=== PATIENT | female | born 1965 | race Caucasian/White ===

== ENCOUNTER 2019-06-19 09:10 | Outpatient (CLI) | payer BC ==
--- NOTE | 2019-06-19 16:19 | XRAY Report ---
Reason: PAIN IN RIGHT FOOT Procedure Date: 06/19/2019 Accession Number: [id number] Procedure: XRS - Foot 3 View RT CPT Code: Final Report FULL RESULT: EXAM: RIGHT FOOT RADIOGRAPHY EXAM DATE: 06/19/2019 09:22 AM. CLINICAL HISTORY: PAIN IN RIGHT FOOT. COMPARISON: 03/17/2015 4:29 PM. TECHNIQUE: 3 views. FINDINGS: Bones: A small osseous plantar spur noted. No fractures or bone lesions. Joints: Normal. No subluxations. Soft Tissues: Normal. No soft tissue swelling. IMPRESSION: A small osseous plantar spur. No acute displaced fracture or malalignment. RADIA
== END 2019-06-19 09:11 | disposition home or self-care (01) ==
LOC: DI.S 09:10
PROVIDERS: ATTEND Nurse Practitioner Family
DX: M77.51 Other enthesopathy of right foot and ankle (principal)

== ENCOUNTER 2021-11-27 09:21 | Outpatient (CLI) | payer BC ==
[2021-11-27 15:31] LABS: BASOPHILS % (AUTO) 0.4 %; EOSINOPHILS # (AUTO) 0.1 10^3/uL (0.0-0.7); HCT - HEMATOCRIT 42.5 % (37.0-47.0); HGB - HEMOGLOBIN 13.5 g/dL (12.0-16.0); LYMPHOCYTES # (AUTO) 1.6 10^3/uL (1.5-3.5); LYMPHOCYTES % (AUTO) 32.1 %; MEAN CORPUSCULAR HEMOGLOBIN 28.8 pg (27.0-31.0); MEAN CORPUSCULAR HGB CONC 31.8 g/dL (32.0-36.0); MEAN CORPUSCULAR VOLUME 90.8 fL (81.0-99.0); MEAN PLATELET VOLUME 13.8 fL (7.9-10.8); MONOCYTES # (AUTO) 0.3 10^3/uL (0.0-1.0); MONOCYTES % (AUTO) 5.7 %; NEUTROPHILS % (AUTO) 60.6 %; PLT - PLATELET COUNT 146 10^3/uL (130-450); RED BLOOD COUNT 4.68 10^6/uL (4.20-5.40); RED CELL DISTRIBUTION WIDTH 13.3 % (12.0-15.0); WHITE BLOOD COUNT 4.9 x10^3/uL (4.8-10.8)
[2021-11-27 15:51] LABS: ALBUMIN 4.1 g/dL (3.2-5.5); ALBUMIN/GLOBULIN RATIO 1.4 (1.0-2.2); ALKALINE PHOSPHATASE 54 IU/L (42-121); ALT ALANINE AMINOTRANSFERASE 21 IU/L (10-60); AST ASPARTATE AMINOTRANSFERASE 14 IU/L (10-42); BILIRUBIN,TOTAL 0.5 mg/dL (0.2-1.0); BUN - BLOOD UREA NITROGEN 16 mg/dL (6-20); CALCIUM 9.5 mg/dL (8.5-10.3); CARBON DIOXIDE - CO2 28 mmol/L (21-32); CHLORIDE 104 mmol/L (101-111); CHOLESTEROL 183 mg/dL; CREATININE 0.6 mg/dL (0.4-1.0); GFR - MDRD 103 (>89); GLUCOSE 98 mg/dL (70-100); HDL CHOLESTEROL 61 mg/dL; LDL CHOLESTEROL,CALCULATED 105 mg/dL; LDL/HDL RATIO 1.7 (<4.4); POTASSIUM 3.9 mmol/L (3.5-5.0); SODIUM 141 mmol/L (135-145); TOTAL PROTEIN 7.1 g/dL (6.7-8.2); TRIGLYCERIDES 86 mg/dL; VLDL CHOLESTEROL 17 mg/dL
[2021-11-27 15:55] LABS: CRP - C-REACTIVE PROTEIN < 1.0 mg/dL (0-1.0)
[2021-11-27 16:21] LABS: ESTIMATED AVERAGE GLUCOSE 108 mg/dL (70-100); HEMOGLOBIN A1c% 5.4 % (4.27-6.07)
== END 2021-11-27 09:22 | disposition home or self-care (01) ==
LOC: LAB.S 09:21
PROVIDERS: ATTEND Registered Nurse
DX: Z00.00 Encounter for general adult medical examination without abnormal findings (principal); E55.9 Vitamin D deficiency, unspecified; Z13.6 Encounter for screening for cardiovascular disorders; Z13.1 Encounter for screening for diabetes mellitus; E66.9 Obesity, unspecified; F32.A Depression, unspecified
CPT/HCPCS: 36415; 80053; 80061; 82306; 83036; 83721; 84443; 85025; 86140

== ENCOUNTER 2022-03-30 15:48 | Outpatient (CLI) | payer BC ==
--- NOTE | 2022-03-30 17:39 | XRAY Report ---
PROCEDURE: Knee 3 View BILAT INDICATIONS: OSTEOARTHRITIS TECHNIQUE: 3 views of the bilateral knee(s) were acquired. COMPARISON: None. FINDINGS: Bones: No fractures or dislocations. No suspicious bony lesions. Moderate medial and mild lateral compartmental joint space narrowing noted bilaterally. Small marginal osteophytes present. Small bila teral joint effusions noted. Both patellofemoral joint spaces are relatively preserved. Soft tissues: No radiopaque foreign body IMPRESSION: Moderate osteoarthritis with mild marginal osteophytes Small bilateral joint effusions Reviewed by: Tj Owens MD on 03/30/2022 4:37 PM AKIGOR Approved by: Tj Owens MD on 03/30/2022 4:37 PM AKDT Station ID: [id number]
--- NOTE | 2022-03-30 18:03 | XRAY Report ---
PROCEDURE: Foot 3 View RT INDICATIONS: OSTEOARTHRITIS TECHNIQUE: 3 views of the foot were acquired. COMPARISON: X-ray right foot, . FINDINGS: Bones: No fractures or dislocations. No suspicious bony lesions. Mild degenerative joint disease of the intertarsal joints, the second, third, fourth and fifth tarsometatarsal joints and multiple inte rphalangeal joints. Prominent calcaneus plantar spurring. Bipartite sesamoids. Soft tissues: No tibiotalar joint effusion. Achilles tendon appears normal. IMPRESSION: 1. Mild osteoarthritis. 2. Calcaneal spurring. Reviewed by: Stefani Hearn MD on 03/30/2022 6:02 PM PDT Approved by: Stefani Hearn MD on 03/30/2022 6:02 PM PDT Station ID: [id number]
== END 2022-03-30 15:49 | disposition home or self-care (01) ==
LOC: DI.S 15:48
PROVIDERS: ATTEND Registered Nurse
DX: M17.0 Bilateral primary osteoarthritis of knee (principal); M19.071 Primary osteoarthritis, right ankle and foot; M77.31 Calcaneal spur, right foot; M25.462 Effusion, left knee; M25.461 Effusion, right knee

== ENCOUNTER 2023-01-01 08:00 | Outpatient (CLI) | payer BC ==
--- NOTE | 2023-01-01 15:03 | XRAY Report ---
PROCEDURE: Knee 4 View BILAT INDICATIONS: BILAT KNEE PAIN TECHNIQUE: 4 views of each knee(s) were acquired. COMPARISON: None. FINDINGS: Bones: No fractures or dislocations. No suspicious bony lesions. Moderate tricompartmental osteoart hritic changes. There is joint space narrowing in the medial femorotibial compartment bilaterally, mo derate--12 and severe on the right and mild on the left. Soft tissues: Small knee joint effusion. No suspicious soft tissue calcifications or masses. IMPRESSION: 1. Tricompartmental osteoarthritis as described, right greater than left. 2. Small knee joint effusions. Reviewed by: Stefani Hearn MD on 01/01/2023 3:01 PM PDT Approved by: Stefani Hearn MD on 01/01/2023 3:01 PM PDT Station ID: [id number]
== END 2023-01-01 23:59 | disposition home or self-care (01) ==
LOC: DI.WOS 08:00
PROVIDERS: ATTEND Physician Assistant Surgical
DX: M17.0 Bilateral primary osteoarthritis of knee (principal); M25.462 Effusion, left knee; M25.461 Effusion, right knee

== ENCOUNTER 2024-01-23 13:45 | Outpatient (CLI) | payer BC ==
--- NOTE | 2024-01-23 15:31 | XRAY Report ---
PROCEDURE: Lumbar Spine 4V INDICATIONS: BACK PAIN TECHNIQUE: 3 views of the lumbar spine were acquired. COMPARISON: None. FINDINGS: Surgical change: None. Bones: 5 [id number] vertebrae are present. Rightward curvature of the spine, centered at L2-3. No vertebral body compression fractures. No suspicious bony lesions. Moderate disc height loss at L5 -S1. Mild disc height loss at remaining levels. Mild facet arthrosis of L5-S1. Soft tissues: Overlying bowel gas pattern is normal. No suspicious soft tissue calcifications. IMPRESSION: Mild to moderate, multilevel degenerative disc disease and lower lumbar facet arthrosis. Reviewed by: Freeman Santana MD on 01/23/2024 2:30 PM YUNIER Approved by: Freeman Santana MD on 01/23/2024 2:30 PM YUNIER Station ID: [id number]
--- NOTE | 2024-01-23 15:32 | XRAY Report ---
PROCEDURE: Hips w/Pelvis 2-3V BL INDICATIONS: BILATERAL HIP PAIN TECHNIQUE: 2 view(s) of the hip were acquired. COMPARISON: None. FINDINGS: Bones: No fractures or dislocations. No suspicious bony lesions. The visualized pelvic ring appear s intact. Nonuniform joint space narrowing of the hips, with associated osteophytosis. Soft tissues: No suspicious soft tissue calcifications or masses. IMPRESSION: No acute bony abnormality. Mild bilateral hip osteoarthritis. Kellgren-Vamshi scale of osteoarthritis: 2. Reviewed by: Freeman Santana MD on 01/23/2024 2:31 PM AKDT Approved by: Freeman Santana MD on 01/23/2024 2:31 PM AKDT Station ID: [id number]
== END 2024-01-23 13:46 | disposition home or self-care (01) ==
LOC: DI.S 13:45
PROVIDERS: ATTEND Internal Medicine
DX: M51.36 Other intervertebral disc degeneration, lumbar region (principal); M51.37 Other intervertebral disc degeneration, lumbosacral region; M47.816 Spondylosis without myelopathy or radiculopathy, lumbar region; M16.0 Bilateral primary osteoarthritis of hip

== ENCOUNTER 2024-02-05 08:01 | Outpatient (CLI) | payer BC ==
[2024-02-05 14:49] LABS: BASOPHILS % (AUTO) 0.4 %; EOSINOPHILS # (AUTO) 0.1 10^3/uL (0.0-0.7); HCT - HEMATOCRIT 43.6 % (37.0-47.0); HGB - HEMOGLOBIN 13.5 g/dL (12.0-16.0); LYMPHOCYTES # (AUTO) 1.7 10^3/uL (1.5-3.5); LYMPHOCYTES % (AUTO) 34.1 %; MEAN CORPUSCULAR HEMOGLOBIN 28.1 pg (27.0-31.0); MEAN CORPUSCULAR VOLUME 90.8 fL (81.0-99.0); MEAN PLATELET VOLUME 13.4 fL (7.9-10.8); MONOCYTES # (AUTO) 0.3 10^3/uL (0.0-1.0); MONOCYTES % (AUTO) 5.1 %; NEUTROPHILS % (AUTO) 59.2 %; PLT - PLATELET COUNT 159 10^3/uL (130-450); RED CELL DISTRIBUTION WIDTH 13.9 % (12.0-15.0); WHITE BLOOD COUNT 5.1 x10^3/uL (4.8-10.8)
[2024-02-05 15:12] LABS: ESTIMATED AVERAGE GLUCOSE 100 mg/dL (70-100); HEMOGLOBIN A1c% 5.1 % (4.27-6.07)
[2024-02-05 15:33] LABS: % IRON SATURATION 18 % (20-50); ALBUMIN 4.4 g/dL (3.2-5.5); ALBUMIN/GLOBULIN RATIO 1.8 (1.0-2.2); ALKALINE PHOSPHATASE 75 IU/L (42-121); ALT ALANINE AMINOTRANSFERASE 11 IU/L (10-60); AST ASPARTATE AMINOTRANSFERASE 11 IU/L (10-42); BILIRUBIN,TOTAL 0.5 mg/dL (0.2-1.0); BUN - BLOOD UREA NITROGEN 16 mg/dL (6-20); CALCIUM 9.9 mg/dL (8.5-10.3); CARBON DIOXIDE - CO2 30 mmol/L (21-32); CHLORIDE 106 mmol/L (101-111); CHOL/HDL RATIO 3.2 (<4.4); CHOLESTEROL 193 mg/dL; CREATININE 0.6 mg/dL (0.6-1.3); CRP - C-REACTIVE PROTEIN < 0.5 mg/dL (<0.5); GFR - MDRD 103 (>89); GLUCOSE 94 mg/dL (74-104); HDL CHOLESTEROL 61 mg/dL; IRON 73 ug/dL (50-212); LDL CHOLESTEROL,CALCULATED 111 mg/dL; LDL/HDL RATIO 1.8 (<4.4); POTASSIUM 4.1 mmol/L (3.5-4.5); SODIUM 140 mmol/L (135-145); TOTAL IRON BINDING CAPACITY 399 ug/dL (250-450); TOTAL PROTEIN 6.9 g/dL (6.4-8.9); TRANSFERRIN 285 mg/dL (203-362); TRIGLYCERIDES 103 mg/dL; VLDL CHOLESTEROL 21 mg/dL
[2024-02-05 15:52] LABS: THYROID STIMULATING HORMONE 3.17 uIU/mL (0.34-5.60)
[2024-02-05 15:56] LABS: FERRITIN 67.6 ng/mL (11.0-306.8)
[2024-02-06 07:10] LABS: VITAMIN D 25-HYDROXY 26.8 ng/mL (30.0-100.0)
[2024-02-06 08:11] LABS: PROGESTERONE 0.2 ng/mL (.)
[2024-02-06 09:11] LABS: CALCIUM IONIZED SERUM 5.1 mg/dL (4.5-5.6)
== END 2024-02-05 08:02 | disposition home or self-care (01) ==
LOC: LAB.S 08:01
PROVIDERS: ATTEND Internal Medicine
DX: M17.11 Unilateral primary osteoarthritis, right knee (principal); Z13.220 Encounter for screening for lipoid disorders; E55.9 Vitamin D deficiency, unspecified; N95.1 Menopausal and female climacteric states; G25.81 Restless legs syndrome; R63.5 Abnormal weight gain; R53.83 Other fatigue
CPT/HCPCS: 36415; 80053; 80061; 82306; 82330; 82670; 82728; 83036; 83540; 83721; 84144; 84443; 84466; 85025; 86140